=== PATIENT | male | born 1990 | race Caucasian/White ===

== ENCOUNTER 2016-07-19 17:25 | Emergency (ER) | payer OTHER ==
[2016-07-19 18:04] VITALS: BP 104/59
[2016-07-19] MEDS ORDERED: cefTRIAXone VIAL(*) 1,000 MG VIAL IM ONE (18:11)
[2016-07-19] MEDS ORDERED: Lidocaine 1% MPF* 2 ML VIAL INJ ONE (18:11)
--- NOTE | 2016-07-19 18:22 | UC ---
Hand/Wrist HPI - HPI Summary HPI Summary: patient noticed that his right middle finger was red and swollen yesterday, today after work the swelling and redness have progressed to the hand, denies any trauma, denies any cuts. - History Of Current Complaint Chief Complaint: UCUpperExtremity Stated Complaint: RT HAND SWELLING Time Seen by Provider: 07/19/16 18:08 Hx Obtained From: Patient ?: No Onset/Duration: Sudden Onset, Lasting Days Severity Initially: Mild Severity Currently: Moderate Character Of Pain: Aching, Throbbing, Stiffness Aggravating Factor(s): Movement Alleviating: Nothing Associated Signs And Symptoms: Positive: Swelling, Redness - Allergies/Home Medications Allergies/Adverse Reactions: Allergies Allergy/AdvReac Type Severity Reaction Status Date / Time No Known Allergies Allergy Verified 07/19/16 17:57 PMH/Surg Hx/FS Hx/Imm Hx Previously Healthy: Yes - Surgical History Surgical History: Yes Surgery Procedure, Year, and Place: lasik eye surgery - Family History Known Family History: Negative: Cardiac Disease, Hypertension - Social History Alcohol Use: None Substance Use Type: None Smoking Status (MU): Never Smoked Tobacco - Immunization History Most Recent Tetanus Shot: unsure Review of Systems Constitutional: Negative Skin: Other - redness and swelling of right hand Eyes: Negative ENT: Negative Respiratory: Negative Cardiovascular: Negative Gastrointestinal: Negative Genitourinary: Negative Motor: Negative Neurovascular: Negative Musculoskeletal: Negative Neurological: Negative Psychological: Negative All Other Systems Reviewed And Are Negative: Yes Physical Exam Triage Information Reviewed: Yes Appearance: Well-Appearing, Well-Nourished, Pain Distress Vital Signs: Initial Vital Signs Temp 98.8 F 07/19/16 17:58 Pulse 84 07/19/16 17:58 Resp 16 07/19/16 17:58 BP 104/59 07/19/16 17:58 Pulse Ox 99 07/19/16 17:58 Vital Signs Reviewed: Yes Eye Exam: Normal Eyes: Positive: Conjunctiva Clear ENT Exam: Normal ENT: Positive: Hearing grossly normal, Pharynx normal, TMs normal Dental Exam: Normal Neck exam: Normal Neck: Positive: Supple, Nontender, No Lymphadenopathy Respiratory Exam: Normal Respiratory: Positive: Chest non-tender, Lungs clear, Normal breath sounds Cardiovascular Exam: Normal Cardiovascular: Positive: RRR, No Murmur, Pulses Normal Abdominal Exam: Normal Abdomen Description: Positive: Nontender, No Organomegaly, Soft Bowel Sounds: Positive: Present Musculoskeletal Exam: Normal Musculoskeletal: Positive: Strength Intact, ROM Intact, No Edema Neurological Exam: Normal Neurological: Positive: Alert, Muscle Tone Normal Psychological Exam: Normal Skin: Positive: Other - right middle finger and the central part of the dorsum of hand red swollen and warm to touch, outlined the erythema in surgical marker. Hand/Wrist Course/Dx - Course Course Of Treatment: hx obtained, exam performed, meds reivewed, given 1 gr of rocephin and put on keflex, no areas of drainage noted. advised to do warm soaks multiple times a day and follow up with any progression upt eh hand and arm - Differential Dx/Diagnosis Differential Diagnosis/HQI/PQRI: Cellulitis, Foreign Body, Fracture, Infection, Sprain, Strain, Tendonitis Provider Diagnoses: cellulitis of the right hand Discharge - Discharge Plan Condition: Stable Disposition: HOME Prescriptions: Cephalexin CAP* [Keflex CAP*] 500 mg PO QID #28 cap Patient Education Materials: Cellulitis (ED) Additional Instructions: 1. Take the antibiotic as prescribed, start it tomorrow 2. Warm soaks of the hand multiple times a day. 3. Follow up here or Dr Coulter if redness and swelling of the hand increase or you do not see any improvement in the next 24 hours.
[2016-07-19] MEDS ORDERED: Lidocaine 1% MPF* 2 ML VIAL ONE (18:28)
== END 2016-07-19 19:06 | disposition home or self-care (01) ==
LOC: UCCORT 17:25
DX: L03.113 Cellulitis of right upper limb (principal)
CPT/HCPCS: 96372; 99202; G0463; J0696

== ENCOUNTER 2017-03-05 13:24 | Emergency (ER) | payer OTHER ==
[2017-03-05 15:20] VITALS: BP 108/74
--- NOTE | 2017-03-05 15:52 | UC ---
FLU HPI - HPI Summary HPI Summary: 26 male presents to with complaints of cough, fever/chills and congestion that has been ongoing for the past 3 days and appears to be worsening. Patient denies chest pain and trouble breathing. Admits to cough being productive with yellow/green secretions. No ear pain, mild sore throat at times. Denies nausea, vomiting and diarrhea. Known sick contact, son. No other complaints. No PMHx. Has been taking ibuprofen intermittently. Last took at 10am this morning. - History of Current Complaint Chief Complaint: UCRespiratory Stated Complaint: COUGH,CONGESTION Time Seen by Provider: 03/05/17 15:21 Hx Obtained From: Patient Onset/Duration: Sudden Onset, Lasting Days, Still Present, Worse Since Severity Currently: Moderate Severity Initially: Moderate Pain Intensity: 5 Pain Scale Used: 0-10 Numeric Associated Signs & Symptoms: Positive: F/C, Myalgia, Cough, Sore Throat, Nasal Congestion - Allergy/Home Medications Allergies/Adverse Reactions: Allergies Allergy/AdvReac Type Severity Reaction Status Date / Time No Known Allergies Allergy Verified 03/05/17 15:20 Home Medications: Home Medications Ibuprofen TAB* [Motrin TAB* 400 MG] 400 mg PO Q6H PRN 03/05/17 [History Confirmed 03/05/17] PMH/Surg Hx/FS Hx/Imm Hx - Additional Past Medical History Additional PMH: Denies DM, HTN and asthma - Surgical History Surgical History: Yes Surgery Procedure, Year, and Place: lasik eye surgery - Family History Known Family History: Negative: Cardiac Disease, Hypertension - Social History Alcohol Use: None Substance Use Type: None Smoking Status (MU): Never Smoked Tobacco - Immunization History Most Recent Tetanus Shot: unsure Review of Systems Constitutional: Fever, Chills, Fatigue Skin: Negative Eyes: Negative ENT: Sore Throat, Nasal Discharge Respiratory: Cough Cardiovascular: Negative Gastrointestinal: Negative Musculoskeletal: Myalgia Neurological: Negative All Other Systems Reviewed And Are Negative: Yes Physical Exam Triage Information Reviewed: Yes Appearance: No Pain Distress, Well-Nourished, Ill-Appearing Vital Signs: Initial Vital Signs Temp 100.7 F 03/05/17 15:13 Pulse 110 03/05/17 15:13 Resp 16 03/05/17 15:13 BP 108/74 03/05/17 15:13 Pulse Ox 98 03/05/17 15:13 tachycardia and low grade temp noted. non hypoxic Vital Signs Reviewed: Yes Eyes: Positive: Conjunctiva Clear ENT: Positive: Normal ENT inspection, Hearing grossly normal, Pharyngeal erythema, Nasal congestion, TMs normal, TM red, Tonsillar swelling, Uvula midline. Negative: Nasal drainage, TM bulging, TM dull, Tonsillar exudate, Sinus tenderness Dental: Negative: Cervical Lymphadenopathy Neck: Positive: Supple, Nontender, No Lymphadenopathy Respiratory: Positive: Chest non-tender, Lungs clear, No respiratory distress, No accessory muscle use, Decreased breath sounds - right side. Negative: Stridor, Wheezing Cardiovascular: Positive: RRR, No Murmur, Pulses Normal, Tachycardia Abdomen Description: Positive: Nontender, No Organomegaly, Soft Musculoskeletal Exam: Normal Neurological Exam: Normal Skin Exam: Normal Flu Course/Dx - Course Course Of Treatment: influenza culture obtained and positive for B. will treat with tamiflu. vitals due to illness. aware of worsening signs and symptoms. increase fluids, rest. given tylenol while in UC. continue ibu/tyl for fever and discomfort. no other concerns at this time. - Differential Dx/Diagnosis Differential Diagnosis/HQI/PQRI: Influenza, Pneumonia, Upper Respiratory Infection Provider Diagnoses: influenza B Discharge - Discharge Plan Condition: Stable Disposition: HOME Prescriptions: Oseltamivir CAP* [Tamiflu CAP*] 75 mg PO BID #10 cap Patient Education Materials: Influenza (ED) Forms: *Work Release Referrals: No Primary Care Phys,NOPCP [Primary Care Provider] - [facility] [place] [facility] [Outside] Additional Instructions: Take prescribed tamiflu as directed. Increase fluid intake and get plenty of rest. Ibuprofen/tylenol for fever and discomfort. Flu is very contagious wash hands frequently and cover mouth when coughing. Follow up with PCP. Any new or worsening symptoms please seek medical attention promptly.
[2017-03-05] MEDS ORDERED: Acetaminophen TAB* 325 MG PO ONE (15:58)
== END 2017-03-05 16:16 | disposition home or self-care (01) ==
LOC: UCCORT 13:24
DX: J11.1 Influenza due to unidentified influenza virus with other respiratory manifestations (principal)
CPT/HCPCS: 87502; 99212; A9270-GY; G0463

== ENCOUNTER 2017-06-17 15:09 | Emergency (ER) | payer OTHER ==
[2017-06-17 16:19] VITALS: BP 100/52
--- NOTE | 2017-06-17 16:22 | UC ---
FLU HPI - History of Current Complaint Chief Complaint: UCGI Stated Complaint: VOMITING, SWEATS Time Seen by Provider: 06/17/17 15:56 Pain Intensity: 0 - Allergy/Home Medications Allergies/Adverse Reactions: Allergies Allergy/AdvReac Type Severity Reaction Status Date / Time No Known Allergies Allergy Verified 03/05/17 15:20 Home Medications: Home Medications NK [No Home Medications Reported] 06/17/17 [History Confirmed 06/17/17] PMH/Surg Hx/FS Hx/Imm Hx - Surgical History Surgical History: Yes Surgery Procedure, Year, and Place: lasik eye surgery - Family History Known Family History: Negative: Cardiac Disease, Hypertension - Social History Alcohol Use: None Substance Use Type: None Smoking Status (MU): Never Smoked Tobacco - Immunization History Most Recent Tetanus Shot: unsure Physical Exam Vital Signs: Initial Vital Signs Temp 100.5 F 06/17/17 16:07 Pulse 113 06/17/17 16:07 Resp 16 06/17/17 16:07 BP 100/52 06/17/17 16:07 Pulse Ox 93 06/17/17 16:07 Discharge - Discharge Plan Referrals: Sharon DRISCOLL,Rosaura Vinson [Primary Care Provider] -
--- NOTE | 2017-06-17 17:18 | RAD ---
INDICATION: Nausea and vomiting COMPARISON: None TECHNIQUE: PA and lateral views of the chest were obtained. FINDINGS: The heart and mediastinum are normal in size and contour. The lungs are grossly clear. There is no evidence of large pleural effusion. Visualized bones are normal for the patient's age. There is no radiographic evidence of free air beneath the diaphragm IMPRESSION: No radiographic evidence of acute cardiopulmonary disease.
== END 2017-06-17 17:35 | disposition home or self-care (01) ==
LOC: UCCORT 15:09
DX: R11.10 Vomiting, unspecified (principal)
CPT/HCPCS: 71046; 81003; 87502; 99211; G0463

== ENCOUNTER 2017-09-30 09:36 | Emergency (ER) | payer OTHER ==
[2017-09-30 10:05] VITALS: BP 134/77
--- NOTE | 2017-09-30 10:22 | UC ---
Respiratory Complaint HPI - HPI Summary HPI Summary: C/O cough x 1 week, now worsening with coughing fits. Also with congestion and ear ache bilaterally. Chills. Sinus pain maxillary. - History of Current Complaint Chief Complaint: UCRespiratory Stated Complaint: COUGH,CONGESTION Time Seen by Provider: 09/30/17 10:13 Hx Obtained From: Patient Onset/Duration: Sudden Onset, Lasting Weeks - 1, Worse Since - last 2 days. Timing: Constant Severity Initially: Mild Severity Currently: Moderate Pain Intensity: 0 Character: Cough: Productive Alleviating Factors: Nothing Associated Signs And Symptoms: Positive: Chills, URI, Nasal Congestion, Sinus Discomfort - Allergies/Home Medications Allergies/Adverse Reactions: Allergies Allergy/AdvReac Type Severity Reaction Status Date / Time No Known Allergies Allergy Verified 09/30/17 10:05 PMH/Surg Hx/FS Hx/Imm Hx Previously Healthy: Yes - Surgical History Surgical History: Yes Surgery Procedure, Year, and Place: lasik eye surgery - Family History Known Family History: Positive: Diabetes Negative: Cardiac Disease, Hypertension - Social History Occupation: Employed Full-time Lives: With Family Alcohol Use: None Substance Use Type: None Smoking Status (MU): Never Smoked Tobacco - Immunization History Most Recent Tetanus Shot: unsure Review of Systems Constitutional: Chills Eyes: Drainage, Eye Redness ENT: Nasal Discharge, Sinus Pain/Tenderness Respiratory: Cough Is Patient Immunocompromised?: No All Other Systems Reviewed And Are Negative: Yes Physical Exam Triage Information Reviewed: Yes Appearance: No Pain Distress, Well-Nourished, Ill-Appearing Vital Signs: Initial Vital Signs Temp 99.2 F 09/30/17 09:59 Pulse 90 09/30/17 09:59 Resp 18 09/30/17 09:59 BP 134/77 09/30/17 09:59 Pulse Ox 98 09/30/17 09:59 Vital Signs Reviewed: Yes Eyes: Positive: Conjunctiva Clear - OS, Conjunctiva Inflamed - OD, Discharge - clear OD ENT: Positive: Pharynx normal, Nasal congestion, TMs normal - but AD obscrurred by wax Neck exam: Normal Respiratory: Positive: Wheezing - expiratory wheeze with coughing. Cardiovascular Exam: Normal Musculoskeletal Exam: Normal Neurological Exam: Normal Psychological Exam: Normal Skin Exam: Normal UC Diagnostic Evaluation - Laboratory O2 Sat by Pulse Oximetry: 98 Respiratory Course/Dx - Differential Dx/Diagnosis Differential Diagnosis/HQI/PQRI: Asthma, Lower Resp Infection, Sinusitis Provider Diagnoses: Acute URI. Acute sinusitis. Acute bronchospasm. Cerumen impaction right ear. Viral conjunctivitis Discharge - Sign-Out/Discharge Documenting (check all that apply): Patient Departure - Discharge Plan Condition: Stable Disposition: HOME Prescriptions: Clarithromycin TAB* [Biaxin 500 MG TAB*] 500 mg PO BID #20 tab Erythromycin OPTH OINT* [Erythromycin 0.5% OPTH OINT*] 0.25 inch RIGHT EYE TID # 1 ophth.oint Oxymetazoline 0.05% NASAL SPR* [Afrin 0.05% NASAL SPRAY*] 1 spray NASAL Q12H PRN #1 btl PRN Reason: Congestion predniSONE [Prednisone 20 MG TAB] 20 mg PO DAILY #18 tablet Patient Education Materials: Upper Respiratory Infection (DC), Wheezing (ED), Prednisone (By mouth), Sinusitis (ED), Clarithromycin (By mouth) Referrals: Sharon DRISCOLL,Rosaura Vinson [Primary Care Provider] - Additional Instructions: EYE OINTMENT USE: Wash hands. Place 1/4" strip across tip of finger. Pull lower lid down with the index finger and stabilize the ointment finger with the middle finger and scrape the ointment off on the lid. Pull the lid out and let go as you look down. NASAL SPRAYS AND DROPS: Afrin in the PUMP/ MIST bottle (Get generic 12 hours nasal decongestant spray). Tilt your head down and look at the floor while doing a strong sniff with the spray. Decongestant nasal sprays and drops often give dramatic relief from congestion. They are often recommended for patients with sinus infection to assist with sinus drainage. Persons with high blood pressure should consult the doctor before using these nasal sprays. Afrin and Marty-Synephrine are common [id number] preparations. They should not be used for more than five days, as "rebound" congestion can occur - - the congestion flares as the drug wears off. A way of dealing with this rebound congestion problem is to medicate only one nostril each time, allowing the other nostril to recover from the medicine' s effects. When you no longer need the drug during the day, spray only one nostril each night. This helps you sleep well without severe rebound congestion. Call the doctor if you develop severe headache, palpitations, or chest pain. - Billing Disposition and Condition Condition: STABLE Disposition: Home
== END 2017-09-30 11:01 | disposition home or self-care (01) ==
LOC: UCCORT 09:36
DX: J06.9 Acute upper respiratory infection, unspecified (principal); J01.90 Acute sinusitis, unspecified; B30.9 Viral conjunctivitis, unspecified; J98.01 Acute bronchospasm; H61.21 Impacted cerumen, right ear
CPT/HCPCS: 99213; G0463

== ENCOUNTER 2017-11-28 20:47 | Emergency (ER) | payer OTHER ==
[2017-11-28 21:51] VITALS: BP 115/78
--- NOTE | 2017-11-28 22:43 | UC ---
Abdominal Pain Male HPI - HPI Summary HPI Summary: 27-year-old male comes in with complaint of left. Over the last 3 days he's had the pain in the same location intermittently. He ends up vomiting with the pain. The pain is so severe he ends up vomiting. No fevers or chills. No dysuria he denies any blood in the urine does not feel like he needs to urinate more when he is having the pain. He's been having normal bowel movements. Normal urination. He had an episode of the pain 2 days ago in the morning and also 1 day ago in the morning. He had an episode this evening and the pain was severe and he came to clinic for further evaluation. He's been told he has small kidney stones in the kidneys on a prior CT. He's never knowingly passed a kidney stone in the past. Denies any testicular pain. - History of Current Complaint Chief Complaint: UCAbdominalPain Stated Complaint: ABDOMINAL PAIN Time Seen by Provider: 11/28/17 22:00 Pain Intensity: 5 - Allergies/Home Medications Allergies/Adverse Reactions: Allergies Allergy/AdvReac Type Severity Reaction Status Date / Time No Known Allergies Allergy Verified 11/28/17 21:52 Home Medications: Home Medications NK [No Home Medications Reported] 11/28/17 [History Confirmed 11/28/17] PMH/Surg Hx/FS Hx/Imm Hx Previously Healthy: Yes - Surgical History Surgical History: Yes Surgery Procedure, Year, and Place: lasik eye surgery Other Surgical History: No history of abdominal surgeries - Family History Known Family History: Positive: Diabetes Negative: Cardiac Disease, Hypertension - Social History Alcohol Use: None Substance Use Type: None Smoking Status (MU): Never Smoked Tobacco - Immunization History Most Recent Tetanus Shot: unsure Review of Systems Constitutional: Negative Skin: Negative Eyes: Negative ENT: Negative Respiratory: Negative Cardiovascular: Negative Gastrointestinal: Abdominal Pain, Vomiting Genitourinary: Negative Motor: Negative Neurovascular: Negative Musculoskeletal: Negative Neurological: Negative Psychological: Negative Is Patient Immunocompromised?: No All Other Systems Reviewed And Are Negative: Yes Physical Exam Triage Information Reviewed: Yes Appearance: Well-Appearing, No Pain Distress, Well-Nourished Vital Signs: Initial Vital Signs Temp 97.5 F 11/28/17 21:47 Pulse 88 11/28/17 21:47 Resp 16 11/28/17 21:47 BP 115/78 11/28/17 21:47 Pulse Ox 98 11/28/17 21:47 Vital Signs Reviewed: Yes Eye Exam: Normal Eyes: Positive: Conjunctiva Clear Neck exam: Normal Neck: Positive: Supple Respiratory: Positive: Lungs clear, Normal breath sounds, No respiratory distress Cardiovascular Exam: Normal Cardiovascular: Positive: RRR Abdomen Description: Positive: CVA Tenderness (L) - MILD, Other: - Mild tenderness to palpation left upper quadrant. There is no other tenderness to palpation in the abdomen. Right lower quadrant and right upper quadrant are nontender. No rebound. Bowel Sounds: Positive: Present Musculoskeletal Exam: Normal Musculoskeletal: Positive: Strength Intact, ROM Intact, No Edema Neurological: Positive: Alert Psychological Exam: Normal Psychological: Positive: Normal Response To Family, Age Appropriate Behavior Skin Exam: Normal Abd Pain Male Course/Dx - Course Course Of Treatment: CT Abdomen and Pelvis Without Intravenous Contrast. CLINICAL HISTORY: 27 years old, male; Pain; Abdominal pain; Generalized; Patient HX: Lt sided. upper abdominal pain with vomiting; Additional info: Luq/ left flank pain. TECHNIQUE: Axial computed tomography images of the abdomen and pelvis without. intravenous contrast. All CT scans at this facility use at least one of these. dose optimization techniques: automated exposure control; mA and/or kV. adjustment per patient size (includes targeted exams where dose is matched to. clinical indication); or iterative reconstruction. Coronal and sagittal reformatted images were created and reviewed. COMPARISON: ABD COMP US ABDOMEN COMPLETE 06/27/2017 10:44 AM. FINDINGS: Lung bases: Unremarkable. No mass. No consolidation. ABDOMEN: Liver: Hepatic steatosis. Gallbladder and bile ducts: Unremarkable. No calcified stones. No ductal. dilation. Pancreas: Unremarkable. No ductal dilation. Spleen: Unremarkable. No splenomegaly. Adrenals: Unremarkable. No mass. Kidneys and ureters: Unremarkable. No obstructing stones. No. hydronephrosis. Stomach and bowel: Multiple colonic diverticula without CT findings of. diverticulitis. No obstruction. PELVIS: Appendix: No findings to suggest acute appendicitis. Bladder: Unremarkable. No stones. Reproductive: Unremarkable as visualized. ABDOMEN and PELVIS: Intraperitoneal space: Unremarkable. No free air. No significant fluid. collection. Bones/joints: No acute fracture. No dislocation. Soft tissues: Unremarkable. Vasculature: Unremarkable. No abdominal aortic aneurysm. Lymph nodes: Scattered small mesenteric lymph nodes. IMPRESSION: 1. No acute intra-abdominal findings. . <Electronically signed by Cisco Hyman MD in [place]> 11/28/[id number] results with the patient discussed. DISCUSSED GOING TO THE EMERGENCY DEPARTMENT FOR ANY WORSENING OF HIS CONDITION. OTHERWISE FOLLOW UP WITH PMD. - Differential Dx/Clinical Impression Provider Diagnoses: LUQ PAIN. LEFT FLANK PAIN Discharge - Sign-Out/Discharge Documenting (check all that apply): Patient Departure All imaging exams completed and their final reports reviewed: Yes - Discharge Plan Condition: Stable Disposition: HOME Patient Education Materials: Acute Abdominal Pain (ED) Referrals: Sharon DRISCOLL,Rosaura Vinson [Primary Care Provider] - Additional Instructions: FOLLOW UP WITH YOUR DOCTOR. GO TO THE EMERGENCY DEPARTMENT FOR ANY WORSENING OF YOUR CONDITION; PAIN, FEVER , YOU FEEL ILL OR QUESTIONS OR CONCERNS. - Billing Disposition and Condition Condition: STABLE Disposition: Home
--- NOTE | 2017-11-28 23:38 | RAD ---
EXAM: CT Abdomen and Pelvis Without Intravenous Contrast CLINICAL HISTORY: 27 years old, male; Pain; Abdominal pain; Generalized; Patient HX: Lt sided upper abdominal pain with vomiting; Additional info: Luq/left flank pain TECHNIQUE: Axial computed tomography images of the abdomen and pelvis without intravenous contrast. All CT scans at this facility use at least one of these dose optimization techniques: automated exposure control; mA and/or kV adjustment per patient size (includes targeted exams where dose is matched to clinical indication); or iterative reconstruction. Coronal and sagittal reformatted images were created and reviewed. COMPARISON: ABD COMP US ABDOMEN COMPLETE 06/27/2017 10:44 AM FINDINGS: Lung bases: Unremarkable. No mass. No consolidation. ABDOMEN: Liver: Hepatic steatosis. Gallbladder and bile ducts: Unremarkable. No calcified stones. No ductal dilation. Pancreas: Unremarkable. No ductal dilation. Spleen: Unremarkable. No splenomegaly. Adrenals: Unremarkable. No mass. Kidneys and ureters: Unremarkable. No obstructing stones. No hydronephrosis. Stomach and bowel: Multiple colonic diverticula without CT findings of diverticulitis. No obstruction. PELVIS: Appendix: No findings to suggest acute appendicitis. Bladder: Unremarkable. No stones. Reproductive: Unremarkable as visualized. ABDOMEN and PELVIS: Intraperitoneal space: Unremarkable. No free air. No significant fluid collection. Bones/joints: No acute fracture. No dislocation. Soft tissues: Unremarkable. Vasculature: Unremarkable. No abdominal aortic aneurysm. Lymph nodes: Scattered small mesenteric lymph nodes. IMPRESSION: 1. No acute intra-abdominal findings.
[2017-11-29 10:24] LABS: ABS Basophils 0.1 10^3/ul (0-0.2); ABS Eosinophils 0.1 10^3/ul (0-0.6); ABS Lymphocytes 3.1 10^3/ul (1.0-4.8); ABS Monocytes 0.8 10^3/ul (0-0.8); ABS Neutrophils 6.6 10^3/ul (1.5-7.7); ABS Nucleated RBC 0 10^3/ul; Eosinophil % 1.3 % (0-6); Hematocrit 47 % (42-52); Hemoglobin 15.9 g/dl (14.0-18.0); Lymphocyte % 29.1 % (25-47); Mean Corpuscular HGB Conc 34 g/dl (31-36); Mean Corpuscular Hemoglobin 29 pg (27-31); Mean Corpuscular Volume 85 fL (80-94); Mean Platelet Volume 8.4 um3 (7.4-10.4); Nucleated Red Blood Cells % 0.1; Platelet Count 235 10^3/ul (150-450); Red Blood Count 5.56 10^6/ul (4.00-5.40); Red Cell Distribution Width 13 % (10.5-15); White Blood Count 10.7 10^3/ul (3.5-10.8)
[2017-11-29 10:38] LABS: EGFR Non-African American 78.9 (>60)
--- NOTE | 2017-11-30 07:38 | UC ---
- Progress Note Progress Note: CBC CMP reviewed none concernig no change ljj 11/30/2017 Discharge - Sign-Out/Discharge Documenting (check all that apply): Post-Discharge Follow Up All imaging exams completed and their final reports reviewed: Yes - Discharge Plan Condition: Stable Disposition: HOME Patient Education Materials: Acute Abdominal Pain (ED) Referrals: Sharon DRISCOLL,Rosaura Vinson [Primary Care Provider] - Additional Instructions: FOLLOW UP WITH YOUR DOCTOR. GO TO THE EMERGENCY DEPARTMENT FOR ANY WORSENING OF YOUR CONDITION; PAIN, FEVER , YOU FEEL ILL OR QUESTIONS OR CONCERNS. - Billing Disposition and Condition Condition: STABLE Disposition: Home
== END 2017-11-28 23:47 | disposition home or self-care (01) ==
LOC: UCCORT 20:47
DX: R10.12 Left upper quadrant pain (principal); R11.10 Vomiting, unspecified
CPT/HCPCS: 36415; 74176; 80053; 81003; 83690; 85025; 99211; G0463

== ENCOUNTER 2018-03-28 09:19 | Emergency (ER) | payer OTHER ==
[2018-03-28 09:42] VITALS: BP 128/71
--- NOTE | 2018-03-28 10:21 | UC ---
UC General HPI - HPI Summary HPI Summary: Patient here with pain with urination for the past 3 days. No gross blood. No fevers. No back pain, no abdominal pain or groin pain No penile discharge or lesions. No hx of kidney stones. Is sexually active. Does not use protection but states has been with same partner for the past 2.5 years. Concerned that his urine was dark this morning. PMHx: reviewed Meds: reviewed - History of Current Complaint Chief Complaint: UCGU Stated Complaint: URINARY COMPLAINT Time Seen by Provider: 03/28/18 09:46 Pain Intensity: 9 - Allergy/Home Medications Allergies/Adverse Reactions: Allergies Allergy/AdvReac Type Severity Reaction Status Date / Time No Known Allergies Allergy Verified 03/28/18 09:38 PMH/Surg Hx/FS Hx/Imm Hx Previously Healthy: Yes - Surgical History Surgical History: Yes Surgery Procedure, Year, and Place: lasik eye surgery Other Surgical History: No history of abdominal surgeries - Family History Known Family History: Positive: Diabetes Negative: Cardiac Disease, Hypertension - Social History Alcohol Use: None Substance Use Type: None Smoking Status (MU): Never Smoked Tobacco - Immunization History Most Recent Tetanus Shot: unsure Review of Systems All Other Systems Reviewed And Are Negative: Yes Genitourinary: Positive: Dysuria Physical Exam Triage Information Reviewed: Yes Appearance: Well-Appearing Vital Signs: Initial Vital Signs Temp 98.8 F 03/28/18 09:39 Pulse 80 03/28/18 09:39 Resp 18 03/28/18 09:39 BP 128/71 03/28/18 09:39 Pulse Ox 100 03/28/18 09:39 Vital Signs Reviewed: Yes Neck: Positive: Supple Respiratory: Positive: Chest non-tender, Lungs clear Cardiovascular: Positive: RRR, No Murmur Abdomen Description: Positive: Nontender Male Genital Exam: Positive: Other - no penile lesions or discharge Course/Dx - Course Course Of Treatment: This is a 27 yr old with dysuria. Assesment. Start empiric bactrim for now until results return. Clean Catch U/A: Negative except high SG. Has been drinking adequate amounts. Patient declined empiric STI treatment until results return. Plan. No sexual intercourse until STI results return. We will contact you if any of your urine or lab results are abnormal. If pain persists despite negative work up, follow up with PCP or return to urgent care. Continue to drink plenty of fluids - Diagnoses Provider Diagnosis: Dysuria Discharge - Sign-Out/Discharge Documenting (check all that apply): Patient Departure All imaging exams completed and their final reports reviewed: Yes - Discharge Plan Condition: Good Disposition: HOME Referrals: Rosaura Magaña [Primary Care Provider] - Additional Instructions: No sexual intercourse until STI results return We will contact you if any of your urine or lab results are abnormal If pain persists despite negative work up, follow up with PCP or return to urgent care Continue to drink plenty of fluids Start Bactrim for now until results return - Billing Disposition and Condition Condition: GOOD Disposition: Home
[2018-03-28 15:09] LABS: ABS Basophils 0 10^3/ul (0-0.2); ABS Eosinophils 0.1 10^3/ul (0-0.6); ABS Lymphocytes 1.8 10^3/ul (1.0-4.8); ABS Monocytes 0.5 10^3/ul (0-0.8); ABS Neutrophils 4.4 10^3/ul (1.5-7.7); ABS Nucleated RBC 0 10^3/ul; Eosinophil % 1.4 %; Hematocrit 48 % (42-52); Lymphocyte % 26.3 %; Mean Corpuscular HGB Conc 33 g/dl (31-36); Mean Corpuscular Hemoglobin 28 pg (27-31); Mean Corpuscular Volume 85 fL (80-94); Mean Platelet Volume 8.5 fL (7.4-10.4); Nucleated Red Blood Cells % 0.2; Platelet Count 229 10^3/ul (150-450); Red Blood Count 5.65 10^6/ul (4.00-5.40); Red Cell Distribution Width 13 % (10.5-15); White Blood Count 6.8 10^3/ul (3.5-10.8)
[2018-03-28 16:06] LABS: Albumin 4.5 g/dL (3.2-5.2); Albumin/Globulin Ratio 1.6 (1-3); BUN/Creatinine Ratio 13.1 (8-20); Calcium 9.5 mg/dL (8.6-10.3); EGFR African American 108.9 (>60); Globulin 2.8 g/dL (2-4); Potassium 4.5 mmol/L (3.5-5.0); Total Bilirubin 0.7 mg/dL (0.2-1.0); Total Protein 7.3 g/dL (6.4-8.9)
[2018-03-29 13:09] LABS: Neisseria gonorrhoeae (GC) RNA Negative (Negative)
== END 2018-03-28 11:10 | disposition home or self-care (01) ==
LOC: UCCORT 09:19
DX: R30.0 Dysuria (principal)
CPT/HCPCS: 36415; 80053; 81003; 82550; 85025; 87491; 87591; 99212; G0463

== ENCOUNTER 2019-01-07 07:12 | Emergency (ER) | payer OTHER ==
--- OUTSIDE RECORDS SUMMARY | 2019-01-07 07:28 | XMS REPORT | Continuity of Care Document ---
:1990 External Reference #:[id number] Demographics Mobile Phone [phone] Preferred Language en Marital Status Declined to Specify/Unknown Taoist Affiliation Unknown Race Unknown Ethnic Group Declined to Specify/Unknown Author Name Dashawn Warren M.D. Address [address] [place] [address] Care Team Providers Name Role Phone Rosaura Camilo Care Team Information Guard Captain [phone] Problems Description No Information Available Social History Type Date Description Comments Sex Unknown Tobacco Use Start: Unknown Never Smoked Cigarettes Tobacco Use Start: Unknown Never Smoked Cigars Tobacco Use Start: Unknown Never Smoked A Pipe Smokeless Tobacco Never Used Smokeless Tobacco ETOH Use Currently rarely consumes alcohol Tobacco Use Start: Unknown Patient has never smoked Smoking Status Reviewed: 11/19/18 Patient has never smoked Allergies, Adverse Reactions, Alerts Description No Known Drug Allergies Medications Description No Active Medications Immunizations Description No Information Available Vital Signs Date Vital Result Comment 11/19/2018 2:56pm Weight 237.00 lb Weight 107.503 kg Height 70 inches 5'10" Height in cm's 177.8 cm BMI (Body Mass Index) 34.0 kg/m2 Results Description No Information Available Procedures Date Code Description Status 11/19/2018 60742 Fiberoptic Laryngoscopy Completed Medical Devices Description No Information Available Encounters Type Date Location Provider Dx Diagnosis Office Visit 11/19/2018 [place],[facility] Dashawn Winters R07.0 Pain in throat 3:00p 03/05/07 Ramon Warren Assessments Date Code Description Provider 11/19/2018 R07.0 Pain in throat Dashawn Warren M.D. Plan of Treatment No Information Available Functional Status Description No Information Available Mental Status Description No Information Available Referrals Description No Information Available
[2019-01-07 07:34] VITALS: BP 121/72
--- NOTE | 2019-01-07 07:58 | UC ---
Abdominal Pain Male HPI - HPI Summary HPI Summary: nausea and vomiting x 1 month symptoms are moderate, intermittent , nothing makes it better or worse not sure what is causing his symptoms , denies any abdominal pain, no diarrhea or constipation no fever, no chills, + sore throat and cold symptoms no cough - History of Current Complaint Chief Complaint: UCGeneralIllness Stated Complaint: ST,COUGH,VOMITTING Time Seen by Provider: 01/07/19 07:26 Hx Obtained From: Patient Onset/Duration: Gradual Onset, Lasting Weeks - 4, Still Present Timing: Intermittent Episodes Lasting: Severity Initially: Moderate Severity Currently: Moderate Pain Intensity: 7 Character: Not Applicable Aggravating Factor(s): Nothing Alleviating Factor(s): Nothing Associated Signs And Symptoms: Positive: Nausea, Vomiting. Negative: Diaphoresis, Fever, Cough, Chest Pain, Dizzy, Constipation, Blood in Stool, Urinary Symptoms, Decreased Appetite, Diarrhea, Penile Discharge - Allergies/Home Medications Allergies/Adverse Reactions: Allergies Allergy/AdvReac Type Severity Reaction Status Date / Time No Known Allergies Allergy Verified 01/07/19 07:30 Home Medications: Home Medications NK [No Home Medications Reported] 01/07/19 [History Confirmed 01/07/19] PMH/Surg Hx/FS Hx/Imm Hx Previously Healthy: Yes - Surgical History Surgical History: Yes Surgery Procedure, Year, and Place: lasik eye surgery Other Surgical History: No history of abdominal surgeries - Family History Known Family History: Positive: Diabetes Negative: Cardiac Disease, Hypertension - Social History Alcohol Use: Rare Substance Use Type: None Smoking Status (MU): Never Smoked Tobacco - Immunization History Most Recent Tetanus Shot: unsure Review of Systems All Other Systems Reviewed And Are Negative: Yes Constitutional: Positive: Negative Skin: Positive: Negative ENT: Positive: Sore Throat, Nasal Discharge Cardiovascular: Positive: Negative Gastrointestinal: Positive: Vomiting, Nausea. Negative: Abdominal Pain, Diarrhea Genitourinary: Positive: Negative Physical Exam Vital Signs: Initial Vital Signs Temp 97.9 F 01/07/19 07:30 Pulse 103 01/07/19 07:30 Resp 16 01/07/19 07:30 BP 121/72 01/07/19 07:30 Pulse Ox 98 01/07/19 07:30 Abd Pain Male Course/Dx - Differential Dx/Clinical Impression Provider Diagnosis: Nausea and vomiting, Pharyngitis Discharge ED - Sign-Out/Discharge Documenting (check all that apply): Patient Departure All imaging exams completed and their final reports reviewed: No Studies - Discharge Plan Condition: Stable Disposition: HOME Patient Education Materials: Pharyngitis (ED), Acute Nausea and Vomiting (ED) Referrals: Rosaura Herrera PA [Primary Care Provider] - 2 Days - Billing Disposition and Condition Condition: STABLE Disposition: Home
== END 2019-01-07 07:56 | disposition home or self-care (01) ==
LOC: UCCORT 07:12
DX: J02.9 Acute pharyngitis, unspecified (principal); R11.2 Nausea with vomiting, unspecified; J34.89 Other specified disorders of nose and nasal sinuses
CPT/HCPCS: 87651; 99211; G0463

== ENCOUNTER 2019-01-11 00:53 | Emergency (ER) | payer OTHER ==
[2019-01-11] MEDS ORDERED: Pantoprazole IV* 40 MG IV ONE (01:40)
[2019-01-11] MEDS ORDERED: Ondansetron INJ* 2 MG/ML VIAL IV ONE (01:40)
[2019-01-11] MEDS ORDERED: NS 0.9% 1000 ML** 1,000 ML IV ONE (01:40)
--- NOTE | 2019-01-11 02:28 | ED ---
GI/ HPI - HPI Summary HPI Summary: 28 year old male presents to the ED with a chief complaint of vomiting that began a month ago but has worsened in the last 3 days. He says he has been unable to keep any food he eats down. He saw a doctor 2 days ago who diagnosed him with a sinus infection and prescribed antibiotics, but his vomiting has gotten worse since then. He reports that he normally feels completely normal but suddenly gets an urge to vomit. Patient also reports diarrhea last week, dark urine, and infrequent urination. Patient does not smoke tobacco or do recreational drugs. He rarely drinks. - History of Current Complaint Chief Complaint: EDNauseaVomitDiarrh Time Seen by Provider: 01/11/19 01:41 Stated Complaint: THROWING UP FOR A WEEK PER PT Hx Obtained From: Patient Onset/Duration: Started Weeks Ago, Still Present, Worse Since - 3 days ago Severity: Moderate Current Severity: Moderate Pain Intensity: 7 Associated Signs and Symptoms: Positive: Vomiting, Diarrhea Aggravating Factor(s): Nothing Alleviating Factor(s): Nothing - Allergy/Home Medications Allergies/Adverse Reactions: Allergies Allergy/AdvReac Type Severity Reaction Status Date / Time No Known Allergies Allergy Verified 01/11/19 01:00 PMH/Surg Hx/FS Hx/Imm Hx Previously Healthy: Yes EENT History: Reports: Other - sinus infection - Surgical History Surgery Procedure, Year, and Place: lasik eye surgery Infectious Disease History: No Infectious Disease History: Denies: Traveled Outside the [place] in Last 30 Days - Family History Known Family History: Positive: Diabetes Negative: Cardiac Disease, Hypertension - Social History Alcohol Use: Rare Substance Use Type: Reports: None Smoking Status (MU): Never Smoked Tobacco Review of Systems - ROS Summary Review of Systems Summary: Home Medications Medication Instructions Recorded Confirmed Type NK [No Home Medications Reported] 01/07/19 01/11/19 History Negative: Fever Positive: Vomiting, Diarrhea All Other Systems Reviewed And Are Negative: Yes Physical Exam - Summary Physical Exam Summary: General: Well-developed, Well-nourished male. No acute distress. HEENT: Normocephalic, Atraumatic. Eyes: Conjuctiva normal, PERRL. Ears: TMs within normal limits. Nares: (-) discharge, (-) erythema. Oropharynx: Clear, mucous membranes dry, (-) exudates. Neck: Soft, FROM, (-) lymphadenopathy, (-) thyromegaly, (-) JVD. Cardiovascular: Normal sinus rhythm, (-) murmur. Lungs: Clear to auscultation bilaterally (-) wheezes, (-) rales, (-) rhonchi. Abdomen: Soft, non-tender, non-distended, (-) organomegaly, normal bowel sounds. Back: (-) CVA tenderness Extremities: No edema. Skin: Warm, dry, (-) rash. Neuro: Alert and oriented x3, no focal deficits. Psychiatric: Mood normal, affect normal. Triage Information Reviewed: Yes Vital Signs On Initial Exam: Initial Vitals Temp Pulse Resp BP Pulse Ox 97.8 F 90 16 136/88 97 01/11/19 00:55 01/11/19 00:55 01/11/19 00:55 01/11/19 00:55 01/11/19 00:55 Vital Signs Reviewed: Yes Procedures - Sedation Patient Received Moderate/Deep Sedation with Procedure: No Diagnostics - Vital Signs Vital Signs Temp Pulse Resp BP Pulse Ox 01/11/19 01:29 85 131/95 96 01/11/19 00:55 97.8 F 90 16 136/88 97 - Laboratory Result Diagrams: 01/11/19 02:26 01/11/19 02:26 Lab Statement: Any lab studies that have been ordered have been reviewed, and results considered in the medical decision making process. - CT AP CT CT Interpretation Completed By: Radiologist Summary of CT Findings: AP CT shows: IMPRESSION: 1. Infiltrate located in left lower lung consistent with a developing. pneumonia. 2. No acute abdominal findings. An ED physician has reviewed this report. GIGU Course/Dx - Course Course Of Treatment: 28-year-old male presenting with symptoms of vomiting. Sometimes vomiting after coughing. He states it's been going on for 2 months now. Has seen his primary. Has been to urgent care. He was put on omeprazole. Zofran. Z-Mich. Patient continues to feel sick. Today feels worse. Patient treated with IV fluids, Zofran, Protonix. No further vomiting here. CT abdomen demonstrated left lower lobe pneumonia. Patient treated with Rocephin and discharged home on Augmentin. Off work until Sunday. Plenty of rest and fluids. The PCP. Follow-up sooner for any worsening symptoms. - Diagnoses Provider Diagnoses: Pneumonia Discharge ED - Sign-Out/Discharge Documenting (check all that apply): Patient Departure - discharge - Discharge Plan Condition: Stable Disposition: HOME Prescriptions: Amoxicillin/Clavulanate TAB* [Augmentin TAB 875*] 875 mg PO BID #20 tab Patient Education Materials: Pneumonia (ED) Forms: *Work Release Referrals: Rosaura Herrera PA [Primary Care Provider] - Additional Instructions: Follow up with your primary care provider in 2-3 days. Return to the Emergency Department if you experience new or worsened symptoms. - Billing Disposition and Condition Condition: STABLE Disposition: Home - Attestation Statements Document Initiated by Scribe: Yes Documenting Scribe: Miller Hathaway Provider For Whom Ale is Documenting (Include Credential): Merna Lau MD. Scribe Attestation: Miller Victoria, scribed for Merna Lau MD. on 01/11/19 at 0607. Scribe Documentation Reviewed: Yes Provider Attestation: The documentation as recorded by the scribeMiller accurately reflects the service I personally performed and the decisions made by Merna mendoza MD. Status of Scribe Document: Viewed
[2019-01-11 02:32] LABS: ABS Basophils 0.1 10^3/ul (0-0.2); ABS Eosinophils 0.2 10^3/ul (0-0.6); ABS Lymphocytes 1.2 10^3/ul (1.0-4.8); Eosinophil % 1.9 %; Hematocrit 45 % (42-52); Hemoglobin 15.1 g/dL (14.0-18.0); Lymphocyte % 11.7 %; Mean Corpuscular HGB Conc 34 g/dL (31-36); Mean Corpuscular Hemoglobin 29 pg (27-31); Mean Corpuscular Volume 86 fL (80-94); Mean Platelet Volume 8.1 fL (7.4-10.4); Platelet Count 198 10^3/uL (150-450); Red Blood Count 5.23 10^6 /uL (4.18-5.48); Red Cell Distribution Width 13 % (10-15); White Blood Count 10.5 10^3/uL (3.5-10.8)
[2019-01-11 02:37] LABS: INR 1.16 (0.82-1.09)
[2019-01-11 02:48] LABS: Albumin 3.8 g/dL (3.2-5.2); Albumin/Globulin Ratio 1.2 (1-3); BUN/Creatinine Ratio 11.5 (8-20); C Reactive Protein 70.85 mg/L (<8.01); Calcium 8.9 mg/dL (8.6-10.3); EGFR African American 112.1 (>60); EGFR Non-African American 92.6 (>60); Globulin 3.3 g/dL (2-4); Potassium 3.9 mmol/L (3.5-5.0); Total Bilirubin 0.7 mg/dL (0.2-1.0); Total Protein 7.1 g/dL (6.4-8.9)
[2019-01-11] MEDS ORDERED: Iohexol 300* (CONTRAST) 10 ML SDV IV ONE (03:05)
[2019-01-11 04:28] LABS: Urine Appearance Clear; Urine Bilirubin Negative (Negative); Urine Blood Negative (Negative); Urine Color Yellow; Urine Glucose Negative (Negative); Urine Ketones Negative (Negative); Urine Nitrite Negative (Negative); Urine Protein Negative (Negative); Urine Specific Gravity > 1.060 (1.010-1.030); Urine Urobilinogen Negative (Negative)
[2019-01-11] MEDS ORDERED: cefTRIAXone(*) 2 GM in NS 0.9% 100 ML* 100 ML IVPB ONE (04:39)
[2019-01-11 05:38] VITALS: BP 129/70
== END 2019-01-11 05:37 | disposition home or self-care (01) ==
LOC: ED 00:53
DX: J18.9 Pneumonia, unspecified organism (principal)
CPT/HCPCS: 36415; 74177; 80053; 81003; 82150; 83605; 83690; 85025; 85610; 86140; 96361; 96365; 96375; 99283; J0696; J2405; Q9967

== ENCOUNTER 2019-02-04 14:48 | Emergency (ER) | payer OTHER ==
[2019-02-04 15:41] VITALS: BP 124/71
--- NOTE | 2019-02-04 16:00 | UC ---
Respiratory Complaint HPI - HPI Summary HPI Summary: 28-year-old male comes in with a chief complaint of a couple weeks of rhinorrhea sinus pressure sore throat and cough. Patient had similar symptoms and December and early January 2019. On January 12, 2019 patient was seen in the emergency department and on a CT abdomen pelvis a left lower lobe infiltrate was found and the patient was treated with Rocephin and Augmentin. Patient improved on the Augmentin however the cough never truly went away and now symptoms have returned. Patient was treated for GERD symptoms in January and he did improve from those symptoms at that time with an antacid and Zofran. The upper abdominal symptoms of nausea have started up again with this illness. He does have sinus pressure and postnasal drip. No history of asthma. 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 - History of Current Complaint Chief Complaint: UCGeneralIllness Stated Complaint: COUGH, SINUS Time Seen by Provider: 02/04/19 15:36 Pain Intensity: 7 - Allergies/Home Medications Allergies/Adverse Reactions: Allergies Allergy/AdvReac Type Severity Reaction Status Date / Time No Known Allergies Allergy Verified 02/04/19 15:41 PMH/Surg Hx/FS Hx/Imm Hx Previously Healthy: Yes Respiratory History: Pneumonia - Surgical History Surgical History: Yes Surgery Procedure, Year, and Place: lasik eye surgery Other Surgical History: No history of abdominal surgeries - Family History Known Family History: Positive: Diabetes Negative: Cardiac Disease, Hypertension - Social History Alcohol Use: Rare Substance Use Type: None Smoking Status (MU): Never Smoked Tobacco - Immunization History Most Recent Tetanus Shot: unsure Review of Systems All Other Systems Reviewed And Are Negative: Yes Constitutional: Positive: Other - SEE HPI Skin: Positive: Negative Eyes: Positive: Negative ENT: Positive: Sore Throat, Nasal Discharge, Sinus Congestion, Sinus Pain/ Tenderness Respiratory: Positive: Cough, Other - SEE HPI Cardiovascular: Positive: Negative Gastrointestinal: Positive: Negative Motor: Positive: Negative Neurovascular: Positive: Negative Musculoskeletal: Positive: Negative Neurological: Positive: Negative Psychological: Positive: Negative Is Patient Immunocompromised?: No Physical Exam Triage Information Reviewed: Yes Appearance: No Pain Distress, Well-Nourished, Ill-Appearing - MILD Vital Signs: Initial Vital Signs Temp 97.5 F 02/04/19 15:36 Pulse 116 02/04/19 15:36 Resp 16 02/04/19 15:36 BP 124/71 02/04/19 15:36 Pulse Ox 99 02/04/19 15:36 Vital Signs Reviewed: Yes Eye Exam: Normal Eyes: Positive: Conjunctiva Clear ENT: Positive: Pharyngeal erythema, Nasal congestion, Nasal drainage, TMs normal Neck: Positive: Supple Respiratory: Positive: Lungs clear, Normal breath sounds, No respiratory distress, No accessory muscle use Cardiovascular: Positive: RRR Musculoskeletal: Positive: Strength Intact, ROM Intact Neurological: Positive: Alert, Muscle Tone Normal Psychological: Positive: Age Appropriate Behavior Skin Exam: Normal Respiratory Course/Dx - Course Course Of Treatment: Nursing Clinical Director: Ramirez Oconnor C ([id number]) Motion Study Engineer: MARLA ( NUANCE) Report Date: 02/04/2019 16:41:00 Report Status: Final ====== Start of Report Content Patient Name: NANDO SAEZ Medical Record#: [id number] Ordering Physician: Casa Botello MD Acct.#: [id number] : 05/1990 Age: 28 Sex: M [facility] Exam Date: 02/04/19 1551 ADM Status: [facility] ER Order Information: CHEST PA LAT 2 VWS Accession Number: [id number] CPT: 84376 INDICATION: Pneumonia at the LEFT lower lobe diagnosed on abdomen CT obtained January 11, 2019. Worsening of symptoms. COMPARISON: January 11, [address] and June 17, 2017 chest radiograph. TECHNIQUE: Dual energy PA and lateral views of the chest were obtained. REPORT: No persistent alveolar consolidation evident. The lungs and pleural spaces are radiographically clear. Negative for pneumothorax. The heart, pulmonary vasculature, and mediastinal contours are unremarkable. IMPRESSION: #. No radiographic evidence for pneumonia. Negative exam. <Electronically signed by Ramirez Oconnor MD in OV> 02/04/191635 Dictated By: Ramirez Oconnor MD Dictated Date/Time: 1634 Transcribed Date/Time: 02/04/191634 Copy to: CC:Rosaura DRISCOLL ; Casa Botello MD Imaging - [facility] Imaging - [facility] - [facility] [address] [address] ph ([phone]) ph ([phone]) ph ([phone]) ==== End of Report Content I discussed the x-rays with the patient. No pneumonia seen on chest x-ray. Patient's been having sinusitis symptoms for 2 weeks we'll treat with Augmentin and also Flonase. Patient reports he's been having GERD symptoms and that is why he was seen in the emergency room in January. That time he was treated with an antacid medicine and also Zofran and therefore prescribing all omeprazole and Zofran. Follow-up with primary care doctor get reevaluated sooner if worse or any questions or concerns. - Differential Dx/Diagnosis Provider Diagnosis: Sinusitis, GERD (gastroesophageal reflux disease) Discharge ED - Sign-Out/Discharge Documenting (check all that apply): Patient Departure All imaging exams completed and their final reports reviewed: Yes - Discharge Plan Condition: Stable Disposition: HOME Prescriptions: Amoxicillin/Clavulanate TAB* [Augmentin TAB 875*] 875 mg PO BID #20 tab Fluticasone NASAL SPRAY 50MCG* [Flonase NASAL SPRAY 50MCG*] 2 spray BOTH NARES DAILY #1 btl Omeprazole 20 mg PO BID #30 capsule. Ondansetron ODT TAB* [Zofran 4 MG Odt TAB*] 4 mg PO Q6H PRN #10 tab.odt PRN Reason: Nausea Patient Education Materials: Sinusitis (ED), Gastroesophageal Reflux Disease ( ED) Referrals: Rosaura Herrera PA [Primary Care Provider] - Additional Instructions: FOLLOW UP WITH YOUR DOCTOR IF NOT COMPLETELY IMPROVED. GET REEVALUATED SOONER IF NOT IMPROVING OR WORSE OR ANY QUESTIONS OR CONCERNS. - Billing Disposition and Condition Condition: STABLE Disposition: Home
== END 2019-02-04 17:09 | disposition home or self-care (01) ==
LOC: UCCORT 14:48
DX: J32.9 Chronic sinusitis, unspecified (principal); K21.9 Gastro-esophageal reflux disease without esophagitis
CPT/HCPCS: 71046; 99212; G0463